=== PATIENT | female | born 1990 | race African-American/Black ===

== ENCOUNTER 2019-12-19 19:00 | Emergency (ER) | payer OTHER, SELFPAY ==
--- NOTE | ~2019-12-19 | XR_ITS ---
EXAMINATION: XR foot RT min 3V EXAM DATE: 12/19/2019 19:46 INDICATION: Puncture injury plantar surface base of 5th metatarsal region, possible glass foreign bod y. TECHNIQUE: Right foot dorsoplantar, lateral and oblique projections obtained and reviewed. There is no prior study for comparison. FINDINGS: Right metatarsal bones unremarkable. There are no acute fractures or dislocations identifi ed. There is no subcutaneous gas. The soft tissue is unremarkable. There are no radiopaque foreig n bodies. IMPRESSION: No radiopaque foreign bodies identified. Reviewed, dictated and finalized at location A.
[2019-12-19 19:23] VITALS: BP 117/78; PULSE 94; RESP 18; TEMP 36.6; O2SAT 100
--- NOTE | 2019-12-19 19:39 | ED.GENADULT ---
HPI - General Adult General Chief complaint: Unspecified Stated complaint: ?piece of glass in rt foot Time Seen by Provider: 12/19/19 19:17 History of Present Illness HPI narrative: She stepped on a piece of glass from a broken light bulb 5 days ago. She thought that she got it out, but she has had pain in the right heal since that time and it is getting worse. Additionally she has had a headache everyday for the past 5 days. Improves with OTC medications, but has never resolved completely. No weakness, numbness, fevers. Related Data Home Medications Medication Instructions Recorded Confirmed No Home Medications 12/19/19 12/19/19 Allergies Allergy/AdvReac Type Severity Reaction Status Date / Time No Known Allergies Allergy Verified 12/19/19 19:29 Review of Systems Review of Systems: All systems reviewed & are unremarkable except as noted in HPI and below Constitutional: Constitutional: Denies chills, Denies fever(s) and Denies weakness Eyes: Eyes: Denies change in vision ENT: Denies dizziness Cardiovascular: Cardiovascular: Denies chest pain Respiratory: Respiratory: Denies dyspnea Gastrointestinal: Gastrointestinal: Denies abdominal pain and Denies nausea Integumentary/Breasts: Skin/Breast: Denies rash Neurologic: Reports headache(s), Denies numbness and Denies weakness PMFSH Social History Social History Gender identity (if verbalized by the patient): Female Exam Const: General: healthy appearing, no acute distress and alert Orientation/consciousness: patient oriented x3 HENMT: Head: normal to inspection Eyes: Pupils: Equal, round and reactive pupils present Resp: Effort & Inspection: normal respiratory effort Cardio: Jugular venous distension: no JVD Skin: General skin exam: normal color Rashes: no rashes Neuro: General: patient oriented x3 and moves all extremities Speech: normal speech Extrem: Other: Small elevation to the skin over the lateral right heal with punctate wound in the center. I was able to express a small amount of purulent drainage Psych: Appearance: well kempt Affect: normal affect Course Vital Signs Vital signs: Vital Signs Temperature 36.6 C 12/19/19 19:23 Pulse Rate 94 12/19/19 19:23 Respiratory Rate 18 12/19/19 19:23 Blood Pressure 117/78 12/19/19 19:23 Pulse Oximetry 100 12/19/19 19:23 Temperature 37.3 C 12/19/19 20:32 Pulse Rate 94 12/19/19 20:32 Respiratory Rate 20 12/19/19 20:32 Blood Pressure 128/86 12/19/19 20:32 Pulse Oximetry 100 12/19/19 20:32 Procedures Foreign Body Removal Foreign Body #1: Foreign Body Removal Date: 12/19/19 Foreign Body Removal Time: 20:08 Site: right and foot Description of foreign body: other (Glass) Sedation/Analgesia: none Technique: other (18 guage needle and forceps) Confirmed by:: direct visualization Complications: none Neurovascular: normal distal pulse, normal capillary fill, distal light touch sensation intact, distal motor function normal and no change from pre-procedure Foreign Body Removal Narrative: A very small piece of glass and pus obtained Medical Decision Making Medical Records Medical records reviewed: Yes I reviewed the patient's medical records. Vital Signs Vital Signs: Vital Signs Temperature 36.6 C 12/19/19 19:23 Pulse Rate 94 12/19/19 19:23 Respiratory Rate 18 12/19/19 19:23 Blood Pressure 117/78 12/19/19 19:23 Pulse Oximetry 100 12/19/19 19:23 Temperature 37.3 C 12/19/19 20:32 Pulse Rate 94 12/19/19 20:32 Respiratory Rate 20 12/19/19 20:32 Blood Pressure 128/86 12/19/19 20:32 Pulse Oximetry 100 12/19/19 20:32 Imaging Data Radiologist's impression: ITS Impressions Foot X-Ray 12/19/19 19:54 IMPRESSION: No radiopaque foreign bodies identified. Discharge Plan Discha
[2019-12-19] MEDS: METOCLOPRAMIDE HCL INJ 10 MG/2 ML VIAL IV PUSH (20:01)
[2019-12-19] MEDS: KETOROLAC 30 MG/ML VIAL (*BKC) IV PUSH (20:01)
[2019-12-19] MEDS: diphenhydrAMINE HCl INJ 50 MG/ML VIAL 25 MG IV PUSH (20:01)
[2019-12-19 20:32] VITALS: BP 128/86; PULSE 94; RESP 20; TEMP 37.3; O2SAT 100
== END 2019-12-19 20:36 | disposition home or self-care (01) ==
PROVIDERS: Emergency Provider Emergency Medicine
DX: S91.341A Puncture wound with foreign body, right foot, initial encounter (principal); R51 Headache; W25.XXXA Contact with sharp glass, initial encounter; W45.8XXA Other foreign body or object entering through skin, initial encounter
CPT/HCPCS: 28190; 73630; 96374; 96375; 99284; J0131; J1200; J1885; J2765

== ENCOUNTER 2020-07-10 08:22 | Emergency (ER) | payer OTHER, SELFPAY ==
[2020-07-10 08:35] VITALS: BP 123/68; PULSE 87; RESP 16; TEMP 36.5; O2SAT 100
--- NOTE | 2020-07-10 08:40 | ED.LOWEXIN ---
HPI - Extremity Injury (Lower) General Chief Complaint: Extremity Injury, Lower Stated Complaint: left leg pain Source: patient and RN notes reviewed Limitations: no limitations History of Present Illness HPI Narrative: The obese patient- previously mostly healthy non smoker/ occ drinker- presents with left, distal knee pain. Patient states about 2 days ago while dancing and arising from a squatting position she developed a quick onset of left , prox calf pain. Symptoms are mild, worse with activity; slightly improved but worsened yesterday with increased activity. No swelling, redness,S OB, chest pain, prior injury. Patient adviesed go to hospital for higher testing if not improved Related Data Home Medications Medication Instructions Recorded Confirmed ergocalciferol (vitamin D2) 50,000 unit PO WEEKLY 07/10/20 07/10/20 norgestimate-ethinyl estradiol 1 tablet PO DAILY 07/10/20 07/10/20 [Estarylla] phentermine 1 mg PO DAILY 07/10/20 07/10/20 Allergies Allergy/AdvReac Type Severity Reaction Status Date / Time No Known Allergies Allergy Verified 12/19/19 19:29 Review of Systems Review of Systems: Narrative: General/Constitutional: No weight loss,fever Eyes: N0: Redness,discharge Ears/Nose/Throat: No: Epistaxis,ear discharge Respiratory: Denies: Hemoptysis Gastrointestinal: No Vomiting, Bleeding-rectal Skin: No Lumps, eruption Neurologic: No Focal Weakness,Sz Hematologic: Denies: Petechiae/Purpura Psychiatric: No: Suicida ideationl All Other Systems: Reviewed and Negative PMFSH Social History Social History Gender identity (if verbalized by the patient): Female Comments At time of signature, agree with nursing past medical, surgical, social and family history. There is no relevant family history pertinent to the presenting complaint Exam Narrative: Exam Narrative: General Appearance: well nourished/ obese, Conjunctiva clear Ears: External ear normal, Auditory canal normal Nose: Normal nose, Nares clear Mouth/Throat: Normal appearing, Normal lips: Supple Respiratory: Airway patent, No respiratory distress Musculoskeletal-LLE: Normal strength (mostly intact, limited flexion/extension by pain at endpoints), Tenderness (gastroc laterally, with mild decreased ROM), No swelling, Other (no anterior drawer, no collateral laxity, no Achilles tenderness, no Prater test, neg Segundo's Skin: Warm, Dry, Normal color Neurological: A&O x3, Normal affect Course Vital Signs Vital signs: Vital Signs Temperature 97.7 F 07/10/20 08:35 Pulse Rate 87 07/10/20 08:35 Respiratory Rate 16 07/10/20 08:35 Blood Pressure 123/68 07/10/20 08:35 Pulse Oximetry 100 07/10/20 08:35 Temperature 97.7 F 07/10/20 08:35 Pulse Rate 87 07/10/20 08:35 Respiratory Rate 16 07/10/20 08:35 Blood Pressure 123/68 07/10/20 08:35 Pulse Oximetry 100 07/10/20 08:35 Discharge Plan Discharge Clinical Impression: Gastrocnemius strain, left Qualifiers: Encounter type: initial encounter Qualified Code(s): S86.112A - Strain of other muscle(s) and tendon(s) of posterior muscle group at lower leg level, left leg, initial encounter Patient Disposition: Home, Self-Care Condition: Stable Instructions: Muscle Strain (ED) Additional Instructions: Go to hospital if not improved or worsens for higher testing, as discussed Try provided rehab exercises Prescriptions: New prednisone 20 mg tablet 60 mg PO DAILY Qty: 15 RF: 0 tramadol 50 mg tablet 50 mg PO Q6H PRN (Reason: pain) Qty: 15 RF: 1 No Action norgestimate-ethinyl estradiol [Estarylla] 0.25-35 mg-mcg tablet 1 tablet PO DAILY RF: 0 phentermine 37.5 mg tablet 1 mg PO DAILY RF: 0 ergocalciferol (vitamin D2) 1,250 mcg (50,000 unit) capsule 50,000 unit PO WEEKLY RF: 0 Follow-up/Referrals: Doc Caraballo MD [Primary Care Provider] -
== END 2020-07-10 08:46 | disposition home or self-care (01) ==
PROVIDERS: Emergency Provider Emergency Medicine; PCP Family Medicine
DX: S86.112A Strain of other muscle(s) and tendon(s) of posterior muscle group at lower leg level, left leg, initial encounter (principal); X50.9XXA Other and unspecified overexertion or strenuous movements or postures, initial encounter; Y93.41 Activity, dancing
CPT/HCPCS: 99213; G0463

== ENCOUNTER 2020-08-07 07:52 | Outpatient (CLI) | payer OTHER, SELFPAY ==
--- NOTE | ~2020-08-07 | US_ITS ---
EXAMINATION: US abdomen complete EXAM DATE: 08/07/2020 08:42 INDICATION: Change of fatty liver. TECHNIQUE: Multiple grayscale and Doppler images of the complete abdomen were obtained (by a technolo gist who performed the scan) and subsequently reviewed. There is no prior study for comparison. FINDINGS: The abdominal aorta is normal in caliber. Visualized portion IVC is patent. The pancreatic head a nd body are normal in appearance. The pancreatic tail is not visualized. The liver has normal echogenicity and contour. There are no focal liver lesions identified. There is no evidence of intrahepatic biliary duct dilation. Portal venous flow was seen in the hepatopedal , normal direction and has normal Doppler waveform. Common bile duct measures 5 mm, which is normal. The gallbladder wall is normal in thickness, with ex pected amount of distention. No sonographic evidence of pericholecystic fluid. There is no cholelit hiases. Technologist performing exam reports patient did not demonstrate sonographic Ibrahim's sign. Please note that this sign is less reliable in patients who have received pain medication. Right kidney: There is normal contour and echogenicity. It measures 11.5 x 5.2 x 4.3 centimeters. There are no focal renal lesions identified. There is no hydronephrosis. Left kidney: There is normal contour and echogenicity. It measures 10.8 x 5.3 x 5.0 centimeters. T here are no focal renal lesions identified. There is no hydronephrosis. The spleen measures 10.8 centimeters and is morphologically normal. IMPRESSION: 1. Unremarkable complete abdominal ultrasound exam. Reviewed, dictated and finalized at location A.
== END 2020-08-07 07:53 | disposition home or self-care (01) ==
PROVIDERS: PCP Family Medicine
DX: K76.0 Fatty (change of) liver, not elsewhere classified (principal)
CPT/HCPCS: 76700

== ENCOUNTER → 2021-06-24 08:24 | Outpatient (CLI) | payer OTHER, SELFPAY ==
--- NOTE | ~2021-06-24 | US_ITS ---
EXAMINATION: US transvaginal DATE: 06/24/2021 09:00 INDICATION: Abnormal uterine bleeding, pelvic pain TECHNIQUE: Multiple endovaginal sonographic images of the pelvis were obtained. COMPARISON: None. FINDINGS: The uterus measures 10.6 x 7 x 7.4 cm. The endometrial complex measures 8 mm. The right ova ry measures 4.2 x 4.2 x 4.2 cm and contains a 3.2 cm cyst. The left ovary measures 4.1 x 2 x 2.1 cm. There is normal vascular flow in the ovaries. There is no free fluid in the pelvis. IMPRESSION: 1. No sonographic correlate for the patient's symptoms. Reviewed, dictated and finalized at location A. 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
== END ==
PROVIDERS: Visit Provider Nurse Practitioner
DX: N93.8 Other specified abnormal uterine and vaginal bleeding (principal)
CPT/HCPCS: 76830

== ENCOUNTER 2022-06-01 11:14 | Emergency (ER) | payer OTHER, MEDICAID, SELFPAY ==
--- NOTE | 2022-06-01 11:24 | ED.BACK ---
HPI - Back Pain/Injury General Chief Complaint: Back Pain/Injury Stated Complaint: Back Pain Time Seen by Provider: 06/01/22 11:34 Source: patient, RN notes reviewed and old records reviewed Mode of arrival: ambulatory Limitations: no limitations History of Present Illness HPI Narrative: 32-year-old female presents to the [facility] with complaints of right lower back pain for 1 week. No treatment prior to arrival. Denies any injury. No heavy lifting pushing pulling, or straining. Denies any numbness or tingling in extremities. Denies any loss retention of bowel or bladder. No midline tenderness. No saddle anesthesia MD elicited complaint: back pain (Right lower) Related Data Home Medications Medication Instructions Recorded Confirmed norgestimate 0.25 mg-ethinyl 1 tablet PO DAILY 07/10/20 07/10/20 estradiol 35 mcg tablet (Estarylla) Allergies Allergy/AdvReac Type Severity Reaction Status Date / Time No Known Allergies Allergy Verified 06/01/22 11:25 Review of Systems Review of Systems: All systems reviewed & are unremarkable except as noted in HPI and below Constitutional: Constitutional: Reports no additional constitutional complaints Eyes: Eyes: Reports no additional eye complaints ENT: Reports system reviewed and no additional complaints, except as documented Cardiovascular: Cardiovascular: Reports no additional cardiovascular complaints, Denies chest pain and Denies dyspnea Respiratory: Respiratory: Reports no additional respiratory complaints, Denies chest congestion, Denies cough and Denies dyspnea Gastrointestinal: Gastrointestinal: Reports no additional gastrointestinal complaints, Denies abdominal pain, Denies nausea and Denies vomiting Musculoskeletal: Musculoskeletal: Reports as per HPI and Reports back pain (Right lumbar) Integumentary/Breasts: Skin/Breast: Reports system reviewed and no additional complaints, except as docu Neurologic: Reports system reviewed and no additional complaints, except as documented Psychiatric: Psychiatric: Reports no additional psychiatric complaints Allergic/Immunologic: Allergic/Immunologic: Reports no additional allergic/immunologic complaints PMFSH Social History Social History Gender identity (if verbalized by the patient): Female Comments At the time of my signature, I reviewed and agree with the nursing past medical, surgical, social, and family history. There is no relevant family history pertinent to the patient complaint. Exam Const: General: cooperative, healthy appearing, comfortable, no acute distress, well developed, alert and well nourished Nutritional Appearance: well nourished Orientation/consciousness: patient oriented x3 Limitations: no limitations HENMT: Head: normal to inspection Ears: hearing grossly normal bilaterally and external ears normal Face/Nose/Sinus: Normal external nose present, Normal nares present, Normal nasal mucous membranes and turbinates present and normal facial exam Face and sinus: normal facial exam Mouth: Yes Normal oral and palatal mucosa present, Yes lip normal and Yes moist mucous membranes Throat: posterior oropharynx normal and uvula midline Eyes: General: appearance normal, both eyes and all related structures Alignment and Position: alignment normal Periorbital: periorbital findings normal Conjunctivae: conjunctivae normal Pupils: Equal, round and reactive pupils present EOM: EOMs intact bilaterally Neck: Neck: normal visual inspection, full ROM, no lymphadenopathy and no meningeal signs Chest: Chest palpation & inspection: normal inspection of the chest Resp: Effort & Inspection: normal respiratory effort and able to speak in complete sentences Auscultation: clear to auscultation bilaterally, no crackles, no rales, no rhonchi and no wheezes Cardio: Rate: regular rate Rhythm: regular rhythm Back/Spine/Pelvis: Back: no CVA tenderne
[2022-06-01 11:26] VITALS: BP 117/79; PULSE 71; RESP 16; TEMP 36.7; O2SAT 99
== END 2022-06-01 11:44 | disposition home or self-care (01) ==
PROVIDERS: Emergency Provider Nurse Practitioner
DX: S39.012A Strain of muscle, fascia and tendon of lower back, initial encounter (principal); X58.XXXA Exposure to other specified factors, initial encounter; Z98.84 Bariatric surgery status
CPT/HCPCS: 99213; G0463

== ENCOUNTER 2022-07-20 10:30 | Emergency (ER) | payer OTHER, MEDICAID, SELFPAY ==
--- NOTE | ~2022-07-20 | CT_ITS ---
EXAMINATION: CT abd pelvis lumbar wo con DATE: 07/20/2022 14:28 INDICATION: Right lower quadrant abdominal pain and right sided low back pain TECHNIQUE: Computed tomography (CT) of the abdomen, pelvis and lumbar spine was performed without int ravenous contrast. Automated exposure control and iterative reconstruction technique were employed. T he dose-length product was 1482.62 mGy-cm. COMPARISON: None FINDINGS: Abdomen and pelvis: Lung bases are clear. Heart size is normal. No pericardial or pleural effusion. Postoperative changes of likely sleeve gastrectomy with suture line along the greater curvature of the stomach. Liver, gal lbladder, spleen, pancreas and bilateral adrenal glands are normal. Kidneys and ureters are normal wi th no urolithiasis, hydroureteronephrosis or perinephric/ureteral stranding. The bowels including the appendix are normal. Bladder, anteverted uterus and left adnexa are unremarkable. 2.3 similar right ovarian cyst/follicle. No free intraperitoneal gas or fluid. No pathologically enlarged abdominal or pelvic lymphadenopathy. Lumbar spine: Alignment is normal. Vertebral body and disc heights are normal. Multilevel mild facet osteoarthritis throughout the left and right sides of the lumbar spine. No lumbar central canal or neural foraminal stenosis. IMPRESSION: 1. Normal gallbladder and appendix. No acute intra-abdominal/pelvic process. 2. Normal lumbar spine. Reviewed, dictated and finalized at location B.
[2022-07-20 10:34] VITALS: BP 146/98; PULSE 77; RESP 15; TEMP 37.1; O2SAT 95
--- NOTE | 2022-07-20 12:04 | ED.BACK ---
HPI - Back Pain/Injury General Chief Complaint: Back Pain/Injury Stated Complaint: back pain Time Seen by Provider: 07/20/22 11:22 Source: patient Mode of arrival: ambulatory Limitations: no limitations History of Present Illness HPI Narrative: Patient is a 32 y/o female who presents to the ED with report of right lower back pain. Patient reports having pain since 07/09. She states she woke up that morning with the pain. Denies any strenuous activity, heavy lifting, direct fall or injury. Pain worse with movement and bending. Patient has been taking Tylenol with minimal relief. She states the pain somewhat radiated down her right leg yesterday and intermittently radiates around to her R lower abdomen. Patient denies any fever, nausea, vomiting, dysuria, hematuria, incontinence, weakness, saddle anesthesia, history of kidney stones. Related Data Home Medications Medication Instructions Recorded Confirmed norgestimate 0.25 mg-ethinyl 1 tablet PO DAILY 07/10/20 07/10/20 estradiol 35 mcg tablet (Estarylla) Allergies Allergy/AdvReac Type Severity Reaction Status Date / Time No Known Allergies Allergy Verified 07/20/22 10:44 Review of Systems Review of Systems: CONSTITUTIONAL: Denies fever, chills, or sweats. CARDIOVASCULAR: Denies chest pain. RESPIRATORY: Denies dyspnea. GASTROINTESTINAL: See HPI. GENITOURINARY: Denies incontinence, dysuria or hematuria. MUSCULOSKELETAL: See HPI. NEUROLOGIC: Denies headache, numbness, or weakness. All systems reviewed & are unremarkable except as noted in HPI and below PMFSH Past Medical History Medical History (Updated 07/20/22 @ 15:08 by Vandana Loera PA-C) No pertinent past medical history Surgical History Surgical History (Updated 07/20/22 @ 13:43 by Vandana Loera PA-C) No pertinent past surgical history Social History Social History (Updated 07/20/22 @ 13:43 by Vandana Loera PA-C) Smoking status: Never smoker Gender identity (if verbalized by the patient): Female Exam Narrative: GENERAL: Well appearing, morbidly obese, non-toxic, in no acute distress. HEAD: Normocephalic, atraumatic. NECK: Supple. No adenopathy, no masses. RESPIRATORY: Airway patent, respirations nonlabored. Clear to auscultation bilaterally, no rales, rhonchi, wheezing. CARDIOVASCULAR: Regular rate and rhythm without murmurs, rubs, or gallops. Peripheral pulses 2+ and equal bilaterally. ABDOMINAL: Soft, minimal tenderness throughout right lower/lateral abdomen, no rebound, nondistended, no hepatosplenomegaly. Normoactive BS. MUSCULOSKELETAL: Moves all extremities. Strength/ROM intact without gross deformities. No midline thoracic or lumbar spinal tenderness. Tenderness to palpation in right lumbosacral region, over R SI joint. SKIN: Warm, dry, normal color. No rashes. NEURO: A&O X3. Speech clear. Cranial nerves II-XII grossly intact. Steady gait. No ataxic movements. No focal deficits. PSYCHIATRIC: Appropriate mood and affect. Normal interaction. Course Vital Signs Vital signs: Vital Signs Temperature 98.8 F 07/20/22 10:34 Pulse Rate 77 07/20/22 10:34 Respiratory Rate 15 07/20/22 10:34 Blood Pressure 146/98 H 07/20/22 10:34 Pulse Oximetry 95 07/20/22 10:34 Oxygen Delivery Room Air 07/20/22 10:34 Temperature 98.8 F 07/20/22 10:34 Pulse Rate 77 07/20/22 10:34 Respiratory Rate 15 07/20/22 10:34 Blood Pressure 146/98 H 07/20/22 10:34 Pulse Oximetry 95 07/20/22 10:34 Oxygen Delivery Room Air 07/20/22 10:34 MDM - Back Pain/Injury MDM Narrative Medical decision making narrative: Patient presented to ED with several day onset of right lower back pain, radiating into right lower abdomen, no known injury. Patient's vitals stable upon arrival. Patient with point tenderness in right lumbosacral region, and over SI joint. Pain is positional and localized to paraspinal muscles without signs of cord compression or cauda equina.
[2022-07-20 13:50] LABS: Appearance Urine Clear (Clear); Bacteria Urine 4+ /hpf; Bilirubin Urine Negative (Negative); Blood Urine 3+ (Negative); Color Urine Yellow (Yellow); Glucose Urine UA Negative (Negative); Ketones Urine Trace mg/dL (Negative); Leukocyte Esterase Ur 1+ LEU/UL (Negative); Mucus Urine Present /lpf; Nitrate Urine Negative (Negative); Non Pathogenic Casts 0-2; Protein Urine Trace mg/dL (Negative); RBC Urine 0-2 /hpf (0-2); Squamous Epithelial Cell Urine Occasional /hpf (Few); WBC Urine 0-5 /hpf; pH Urine 5.5 (5.0-9.0)
[2022-07-20 13:56] LABS: Specific Grav Ur 1.036 (1.001-1.035)
[2022-07-20 13:57] LABS: Add Urine Microscopic? YES
[2022-07-20] MEDS: KETOROLAC (*BKC) 60 MG/2 ML VIAL IM (15:08)
== END 2022-07-20 15:30 | disposition home or self-care (01) ==
PROVIDERS: Emergency Provider Physician Assistant
DX: S39.012A Strain of muscle, fascia and tendon of lower back, initial encounter (principal); X58.XXXA Exposure to other specified factors, initial encounter
CPT/HCPCS: 72131; 74176; 81001; 81025; 96372; 99284; J1885

== ENCOUNTER 2022-09-28 09:34 | Emergency (ER) | payer OTHER, MEDICAID, SELFPAY ==
--- NOTE | ~2022-09-28 | XR_ITS ---
EXAMINATION: XR finger 3rd LT min 2V DATE: 09/28/2022 10:04 INDICATION: Left hand third digit swelling. Fall. TECHNIQUE: 3 views of left hand third digit were obtained. COMPARISON: None. FINDINGS: There is a chip avulsion fracture of dorsal base of third middle phalanx with less than 1 m m distraction. Joint spaces are normal. IMPRESSION: 1. Avulsion fracture of dorsal base of third middle phalanx. Reviewed, dictated and finalized at location A.
--- NOTE | 2022-09-28 09:39 | ED.EXTPRO ---
HPI - Extremity Problem General Chief complaint: Extremity Injury, Upper Stated complaint: Left Hand Pain Time Seen by Provider: 09/28/22 09:52 Source: patient, RN notes reviewed and old records reviewed Mode of arrival: ambulatory Limitations: no limitations History of Present Illness HPI Narrative: 32-year-old female presents to the [facility] with pain and swelling to the left 3rd finger. States that she tripped and fell landing on her hand on Wednesday, 2 days ago. Has taken Tylenol for pain. Sensation intact, capillary refill under 2 seconds. Full range of motion, tenderness to the pip and dip joint. Onset (ago): day(s) (2) Related Data Home Medications Medication Instructions Recorded Confirmed drospirenone 3 mg-estetrol 14.2 mg 1 tablet PO DAILY 09/28/22 09/28/22 (28) tablet (Nextstellis) Allergies Allergy/AdvReac Type Severity Reaction Status Date / Time No Known Allergies Allergy Verified 09/28/22 09:35 Review of Systems Review of Systems: All systems reviewed & are unremarkable except as noted in HPI and below Constitutional: Constitutional: Reports no additional constitutional complaints Eyes: Eyes: Reports no additional eye complaints ENT: Reports system reviewed and no additional complaints, except as documented Cardiovascular: Cardiovascular: Reports no additional cardiovascular complaints, Denies chest pain and Denies dyspnea Respiratory: Respiratory: Reports no additional respiratory complaints, Denies chest congestion, Denies cough and Denies dyspnea Gastrointestinal: Gastrointestinal: Reports no additional gastrointestinal complaints, Denies abdominal pain, Denies nausea and Denies vomiting Musculoskeletal: Musculoskeletal: Reports as per HPI Integumentary/Breasts: Skin/Breast: Reports system reviewed and no additional complaints, except as docu Neurologic: Reports system reviewed and no additional complaints, except as documented Psychiatric: Psychiatric: Reports no additional psychiatric complaints Allergic/Immunologic: Allergic/Immunologic: Reports no additional allergic/immunologic complaints [facility] Past Medical History Medical History No pertinent past medical history Surgical History Surgical History (Updated 07/20/22 @ 13:43 by Vandana Loera PA-C) No pertinent past surgical history Social History Social History Smoking status: Never smoker Gender identity (if verbalized by the patient): Female Comments At the time of my signature, I reviewed and agree with the nursing past medical, surgical, social, and family history. There is no relevant family history pertinent to the patient complaint. Exam Const: General: cooperative, healthy appearing, comfortable, no acute distress, well developed, alert and well nourished Nutritional Appearance: well nourished Orientation/consciousness: patient oriented x3 Limitations: no limitations HENMT: Head: normal to inspection Ears: hearing grossly normal bilaterally and external ears normal Face/Nose/Sinus: Normal external nose present, Normal nares present, Normal nasal mucous membranes and turbinates present and normal facial exam Face and sinus: normal facial exam Eyes: General: appearance normal, both eyes and all related structures Alignment and Position: alignment normal Periorbital: periorbital findings normal Pupils: Equal, round and reactive pupils present EOM: EOMs intact bilaterally Neck: Neck: normal visual inspection, full ROM, no lymphadenopathy and no meningeal signs Chest: Chest palpation & inspection: normal inspection of the chest Resp: Effort & Inspection: normal respiratory effort and able to speak in complete sentences Cardio: Rate: regular rate Rhythm: regular rhythm Back/Spine/Pelvis: Cervical Spine: cervical ROM normal Thoracic/Lumbar Spine: No thoracic spinal tenderness Skin
[2022-09-28 09:51] VITALS: BP 121/92; PULSE 70; RESP 16; TEMP 36.6; O2SAT 100
== END 2022-09-28 10:50 | disposition home or self-care (01) ==
PROVIDERS: Emergency Provider Nurse Practitioner
DX: S62.603A Fracture of unspecified phalanx of left middle finger, initial encounter for closed fracture (principal); W01.0XXA Fall on same level from slipping, tripping and stumbling without subsequent striking against object, initial encounter; Z98.84 Bariatric surgery status
CPT/HCPCS: 29125; 73140; 99214; A4565; G0463

== ENCOUNTER → 2022-11-17 09:19 | Outpatient (CLI) | payer OTHER, MEDICAID, SELFPAY ==
--- NOTE | ~2022-11-17 | US_ITS ---
Pelvic ultrasound. Clinical History: IUD placement Technique: Realtime transabdominal and transvaginal scanning of the pelvis was performed. Color flow Doppler and Doppler spectral analysis were performed. Findings: The uterus is anteverted. The endometrial stripe has a thickness of 10 mm. IUD is in satis factory position No focal mass is identified. The right ovary measures 3.5 x 3.0 x 3.3 cm. No significant right ovarian or adnexal mass is seen. The left ovary measures 4.3 x 1.7 x 4.0 cm. No significant left ovarian or adnexal mass is seen. Vascular flow present in both ovaries on Doppler spectral analysis. There is no evidence of free fluid in the cul de sac. Impression: IUD in satisfactory position. Reviewed, dictated and finalized at [facility]. Impression: IUD in satisfactory position.
== END ==
PROVIDERS: PCP Nurse Practitioner; Visit Provider Nurse Practitioner
DX: R10.2 Pelvic and perineal pain (principal); Z97.5 Presence of (intrauterine) contraceptive device
CPT/HCPCS: 76856